=== PATIENT | female | born 1990 | race Caucasian/White ===

== ENCOUNTER → 2017-03-29 | Outpatient (CLI) | payer MEDICAID | LOC: BRMIMAGING 13:04 | DX: Z34.02 Encounter for supervision of normal first pregnancy, second trimester (principal); Z3A.29 29 weeks gestation of pregnancy | CPT/HCPCS: 76805-PO ==

== ENCOUNTER 2017-08-27 18:20 | Observation (INO) | payer MEDICAID ==
--- NOTE | 2017-08-27 18:52 | EDPHY ---
H & P Stated Complaint: R lateral breast wound - Personal History LMP (Females 10-55): Over 28 Days Ago Current Tetanus/Diphtheria Vaccine: Yes Current Tetanus Diphtheria and Acellular Pertussis (TDAP): Yes - Medical/Surgical History Hx Asthma: No Hx Chronic Respiratory Disease: No Hx Diabetes: No Hx Cardiac Disease: No Hx Renal Disease: No Hx Cirrhosis: No Hx Alcoholism: No Hx HIV/AIDS: No Hx Splenectomy or Spleen Trauma: No Other PMH: mastitis, R wrist surgery, R ankle surgery - Social History Smoking Status: Former smoker Time Seen by Provider: 08/27/17 18:32 HPI/ROS: CHIEF COMPLAINT: Progressive mastitis right breast HISTORY OF PRESENT ILLNESS: 26-year-old female 3 months , breast feeding, complaining of progressive erythema, induration, pain to the right breast at approximately 7:00 position. Symptoms started 1 week ago, seen at urgent care 3 days ago started on oral Keflex but notes symptoms are progressing. No fever no chills. No nausea no vomiting. No flu-like symptoms. REVIEW OF SYSTEMS: A ten point review of systems was performed and is negative with the exception of the items mentioned in the HPI PAST MEDICAL & SURGICAL HISTORY: 3 months , currently breast- feeding. SOCIAL HISTORY:Nonsmoker PHYSICAL EXAM (Prior to examination, patient consented to physical exam, hands were washed and my usual and customary physical exam procedures followed) 1) GENERAL: Well-developed, well-nourished, alert and oriented. Appears to be in no acute distress. 2) HEAD: Normocephalic, atraumatic 3) HEENT: Pupils equal, round, reactive to light bilaterally. Sclera anicteric. 4) NECK: Full range of motion, no meningeal signs. 5) LUNGS: Right breast: At the 7 o'clock position of the right breast she has erythema, induration, tenderness progressively spreading outward. Exquisitely tender. Positive right axillary adenopathy. Clear auscultation bilaterally, no wheezes, no rhonchi, no retractions. 6) HEART: Regular rate and rhythm, no murmur, no heave, no gallop. 7) ABDOMEN: No guarding, no rebound, no focal tenderness, negative McBurney's, 8) MUSCULOSKELETAL: No peripheral edema or discoloration. 9) BACK: , no visual or palpable abnormality. 10) SKIN: No rash, no petechiae. 11) Psychiatric: Patient is oriented X 3, there is no agitation. DIFFERENTIAL DIAGNOSIS: In no particular order including but limited mastitis , breast abscess, cellulitis, necrotizing fasciitis (Armando Nick) Constitutional: Initial Vital Signs Temperature (C) 37 C 08/27/17 18:28 Heart Rate 53 L 08/27/17 18:28 Respiratory Rate 16 08/27/17 18:28 Blood Pressure 109/65 08/27/17 18:28 O2 Sat (%) 97 08/27/17 18:28 O2 Delivery Mode Room Air Allergies/Adverse Reactions: No Known Allergies Allergy (Unverified 08/27/17 18:27) Home Medications: Medication Instructions Recorded Cephalexin [Keflex (*)] 500 mg PO QID 08/27/17 Herbals/Supplements -Info Only 1 ea PO DAILY 08/27/17 Medical Decision Making - Diagnostics Imaging Results: Imaging Impressions Breast Ultrasound 08/27/17 18:49 Impression: Sonographic appearance is consistent with right breast abscess measuring 4.1 x 4.3 x 3.3 cm. Please note: 1. Ultrasound is not a screening modality for the breast. 2. It is used to determine whether a palpable or mammographically demonstrable mass is cystic or solid. 3. Some solid breast masses are isoechoic with the remainder of the tissue and cannot be detected sonographically. Thank you for the opportunity to assist in the care of this patient. Dr. Fernandez discussed these findings in person with Armando Nick at the conclusion of the exam on 08/27/2017. ED Course/Re-evaluation: 6:55 p.m.: Case discussed with secondary supervising physician Dr. Yasmeen Smith in the ER who also evaluated the patient in the ER. Will obtain laboratory studies, ultrasound, IV antibiotics. Patient and I discussed more than likely admission given the the failure of oral antibiotics and progression of symptoms. 7:55 p.m.: Consultation with Dr. Sundeep Mast who will evaluate the patient. 830 p.m.: Dr. Mast will admit the patient (Armando Nick) I have evaluated and participated in the management of this patient. My co- signature indicates that I have reviewed this chart and that I agree with the findings and the plan of care as documented. My personal history and physical findings include: Generally healthy 26-year-old who is 3 months , breast-feeding. She has had progressively worsening tenderness, warmth, and erythema of her right breast. She was diagnosed with mastitis and started on Keflex 2 days ago. Her symptoms have progressed since beginning oral antibiotics. She has not been able to breast feed on that side. She has not been aware of fever. On examination heart is regular lungs are clear. The right breast has erythema involving 2/3 of the breast centrally and laterally with an area at approximately 7 o'clock where the skin is breaking down. Skin is warm. She believes that some purulence drained from this area earlier, none visualized now. Breast ultrasound shows an apparent abscess measuring approximately 4 x 3 x 3 cm. She was seen in consultation by Dr. Mast who plans bedside drainage and IV antibiotics. She received IV vancomycin in the emergency department. (Yasmeen Smith) - Data Points Laboratory Results: Laboratory Results 08/27/17 18:54 08/27/17 18:54 08/27/17 08/27/17 18:54 18:54 WBC 10.23 10^3/uL H 10^3/uL (3.80-9.50) RBC 4.83 10^6/uL 10^6/uL (4.18-5.33) Hgb 13.0 g/dL g/dL (12.6-16.3) Hct 38.6 % % (38.0-47.0) MCV 79.9 fL L fL (81.5-99.8) MCH 26.9 pg L pg (27.9-34.1) MCHC 33.7 g/dL g/dL (32.4-36.7) RDW 13.2 % % (11.5-15.2) Plt Count 253 10^3/uL 10^3/uL (150-400) MPV 10.6 fL fL (8.7-11.7) Neut % (Auto) 72.8 % % (39.3-74.2) Lymph % (Auto) 12.9 % L % (15.0-45.0) Brooke % (Auto) 10.2 % % (4.5-13.0) Eos % (Auto) 3.5 % % (0.6-7.6) Baso % (Auto) 0.3 % % (0.3-1.7) Nucleat RBC Rel Count 0.0 % % (0.0-0.2) Absolute Neuts (auto) 7.45 10^3/uL H 10^3/uL (1.70-6.50) Absolute Lymphs (auto) 1.32 10^3/uL 10^3/uL (1.00-3.00) Absolute Monos (auto) 1.04 10^3/uL H 10^3/uL (0.30-0.80) Absolute Eos (auto) 0.36 10^3/uL 10^3/uL (0.03-0.40) Absolute Basos (auto) 0.03 10^3/uL 10^3/uL (0.02-0.10) Absolute Nucleated RBC 0.00 10^3/uL 10^3/uL (0-0.01) Immature Gran % 0.3 % % (0.0-1.1) Immature Gran # 0.03 10^3/uL 10^3/uL (0.00-0.10) Sodium 140 mEq/L mEq/L (135-145) Potassium 4.2 mEq/L mEq/L (3.5-5.2) Chloride 105 mEq/L mEq/L (97-110) Carbon Dioxide 25 mEq/l mEq/l (22-31) Anion Gap 10 mEq/L mEq/L (8-16) BUN 13 mg/dL mg/dL (7-23) Creatinine 0.6 mg/dL mg/dL (0.6-1.0) Estimated GFR > 60 Glucose 84 mg/dL mg/dL (70-100) Calcium 9.4 mg/dL mg/dL (8.5-10.4) Medications Given: Discontinued Medications Vancomycin HCl 1 gm/ Sodium (Chloride) 250 mls @ 250 mls/hr IV EDNOW ONE Stop: 08/27/17 20:29 Last Admin: 08/27/17 19:45 Dose: 250 mls Departure - Departure Disposition: [facility] Acute Clinical Impression: Abscess of right breast, Acute mastitis of right breast Condition: Fair
[2017-08-27] MEDS ORDERED: VANCOMYCIN HCL/NORMAL SALINE 250 ML IV ONE (19:05)
[2017-08-27 19:12] LABS: PLATELET COUNT 253 10^3/uL (150-400)
[2017-08-27] MEDS ORDERED: VANCOMYCIN 1 GM in NS 250 ML IV ONE (19:30)
[2017-08-27] MEDS ORDERED: ONDANSETRON 4 MG/2 ML VIAL IVP PRN (20:35)
[2017-08-27] MEDS ORDERED: HYDROCODONE/APAP 5/325 TAB PO PRN (20:35)
--- NOTE | 2017-08-27 20:46 | PDCONSULT ---
Manager Skilled Note: Chief complaint: Right breast abscess History of present illness: This is a 26-year-old woman who presents to the hospital with a 4 day course of worsening right-sided breast abscess. She has had a previous history of mastitis on the inner aspect of her right breast approximately 3:00 position now at the 7 o'clock position she has had a mass that was approximately the size of of marble that tripled and then quadrupled in size over the past 4 days. Initially treated with local wound care and then oral antibiotics Keflex from urgent care. The patient denies any fevers or chills her 3-month-old daughter is unable to breast feed on that side due to the swelling she has in the breast. She has been given IV vancomycin. White blood cell count is 10.3 all other indices are normal. Past medical history: None Past surgical history: None Social history: 3-month-old daughter-1st child denies smoking alcohol or illicit drug use. Medications at home: Keflex and ibuprofen No known drug allergies Family history noncontributory Review of systems significant for previous mastitis on the right breast otherwise reviewed and all others are negative Temp Pulse Resp BP Pulse Ox 37 C 73 18 120/64 97 08/27/17 18:28 08/27/17 19:15 08/27/17 19:15 08/27/17 19:15 08/27/17 19:15 Alert oriented no distress Atraumatic, anicteric sclerae Pupils 3 mm equal reactive Lungs clear bilaterally Heart has regular heart tones No supraclavicular adenopathy Right axillary lymphadenopathy 1 mildly tender 1 cm node Right breast diffusely swollen with mild erythema around a large area of desquamating skin with underlying abscess. This area is tender to palpation measures approximately 5 cm. Abdomen soft nontender nondistended Extremities without edema Normal affect Nonfocal neurologic exam, extraocular motions intact 08/27/17 18:54 08/27/17 18:54 Imaging Impressions Breast Ultrasound 08/27/17 18:49 Impression: Sonographic appearance is consistent with right breast abscess measuring 4.1 x 4.3 x 3.3 cm. Please note: 1. Ultrasound is not a screening modality for the breast. 2. It is used to determine whether a palpable or mammographically demonstrable mass is cystic or solid. 3. Some solid breast masses are isoechoic with the remainder of the tissue and cannot be detected sonographically. Thank you for the opportunity to assist in the care of this patient. Dr. Fernandez discussed these findings in person with Armando Nick at the conclusion of the exam on 08/27/2017. Impression right breast abscess/mastitis Plan: Percutaneous drainage of abscess at bedside Admit to hospital for observation overnight Unasyn or Zosyn IV for antibiotic coverage it while in hospital convert back to Keflex on discharge. All questions answered risks benefits and alternatives to the procedure have been outlined with the patient including IV antibiotics only with hot compresses and incision and drainage. The patient has verbalized understanding and wishes to proceed
[2017-08-28] MEDS: PIPERACILLIN/TAZO 3.375 GM/DEX 50 ML IV SCH ×2 (00:07→05:56)
[2017-08-28] MEDS: KETOROLAC 15 MG/1 ML SDV IVP SCH ×2 (00:07→05:56)
[2017-08-28 06:54] VITALS: BP 102/63
--- NOTE | 2017-08-28 09:31 | SOAPPROG ---
SOAP Progress Note Assessment/Plan: Assessment/Plan: 26 yo nursing patient with 4 cm breast abscess treated with aspiration and abx Pt is doing well no increase erythema decreased pain. Able to nurse on the right OOB independently tracy diet Afebrile R breast less erythematous. still draining as expected R axillary LN less tender Doing well D/C home Keflex F.u in office in 3-5 days call for worsening sx Instructions given Questions addressed 08/28/17 09:29 Objective: Vital Signs Temp Pulse Resp BP Pulse Ox 36.5 C 80 18 102/63 94 08/28/17 06:00 08/28/17 06:00 08/28/17 06:00 08/28/17 06:00 08/28/17 06:00 08/27/17 08/28/17 08/29/17 05:59 05:59 05:59 Intake Total 100 Output Total 0 Balance 100 ICD10 Worksheet Patient Problems: Problems Problem Status Onset Abscess of right breast Acute Acute mastitis of right breast Acute
== END 2017-08-28 10:45 | disposition home or self-care (01) ==
LOC: FOB 22:56
PROVIDERS: ADMIT Surgery; ATTEND Surgery
PROC: 0H9T3ZX Drainage of Right Breast, Percutaneous Approach, Diagnostic (ICD-10-PCS; principal; 2017-08-27)
PROC: 3E03329 Introduction of Other Anti-infective into Peripheral Vein, Percutaneous Approach (ICD-10-PCS; 2017-08-27)
DX: O91.23 Nonpurulent mastitis associated with lactation (principal); R59.0 Localized enlarged lymph nodes
CPT/HCPCS: 10021; 76641; 96365; 99285; G0378; J1885; J2543; J3370